=== PATIENT | male | born 1965 | race American Indian/Alaskan Native ===

== ENCOUNTER 2019-10-14 14:35 | Inpatient (IN) | payer MEDICAID ==
--- NOTE | 2019-10-14 15:04 | Emergency Department Report ---
ED General Adult HPI - General Chief complaint: Neuro Symptoms/Deficit Stated complaint: ERRATIC BEHAVIOR Time Seen by Provider: 10/14/19 15:02 Source: EMS Mode of arrival: Stretcher Limitations: No Limitations - History of Present Illness Initial comments: This is a 54-year-old man who was admitted to this facility in September 2019 with an acute metabolic encephalopathy thought secondary to overdose and associated with acute kidney injury requiring dialysis. He is known to have a history of Colstrip's disease. Patient was started on hemodialysis which was continued I believe after discharge. Limited history of present illness is available. I was told that he came from a half-way ([place]) with altered mental status. 09/2019: Hospitalization Reason for admission: Acute respiratory failure Condition: Stable Hospital course: 54-year-old after [place] male seen in the emergency room today with a change in mental status. He was said to have taken an overdose of unknown medications while in the waiting room. He was said to have gone into respiratory failure, hypotensive and subsequently intubated in the emergency room. Family members not available to give any history. Work-up in the emergency room reveals acute kidney injury, hyponatremia, rhabdomyolysis. He has not been able to produce any urine for urine drug screen. Patient was subsequently extubated, although hx complicated with ESRD. Awaiting Outpatient HD placement for discharge. Following extubation the patient was treated for suspected C. difficile colitis. With metronidazole his mental status did improve he did develop end-stage renal disease with progression of his renal condition was initially treated as acute kidney injury but with no resolution and was started on dialysis with further improvement of his mental status. During 1 of his clarity. The patient informs me that he has history of irritable bowel syndrome and that he is has diarrhea multiple times. We eventually were able to obtain an outpatient dialysis place his mental status improved and he is currently stable for discharge (1) Acute metabolic encephalopathy Current Visit: Yes Status: Acute Plan to address problem: Back to Baseline. Metabolic encephalopathy most likely secondary to a combination of drug overdose Colstrip's-like disease. Most likely back at baseline is what we are seeing now. (2) history of Colstrip's disease (3) Lactic acid acidosis/metabolic acidosis Current Visit: Yes Status: Acute Plan to address problem: Resolved secondary to rhabdo. (4) Overdose Current Visit: Yes Status: Acute Qualifiers: Encounter type: initial encounter Injury intent: undetermined intent Qualified Code(s): T50.904A - Poisoning by unspecified drugs, medicaments and biological substances, undetermined, initial encounter Plan to address problem: Unknown drug. (5) ESRD Current Visit: Yes Status: Acute Qualifiers: Renal failure chronicity: acute Acute renal failure type: unspecified Qualified Code(s): N17.9 - Acute kidney failure, unspecified Plan to address problem: Patient with acute kidney injury acute renal failure. Renal prognosis remains guarded. Patient has been started on hemodialysis. Permacath placed will continue dialysis outpatient. (6) Respiratory failure Current Visit: Yes Status: Acute Qualifiers: Chronicity: acute Respiratory failure complication: hypoxia Qualified Code(s): J96.01 - Acute respiratory failure with hypoxia Plan to address problem: Patient improving now extubated. Breathing without oxygen with adequate saturations. No further need only as needed oxygen. (7) Clostridium difficile colitis Current Visit: Yes Status: Acute Plan to address problem: Newly diagnosed C. difficile colitis will start patient on Flagyl twice daily. 8. Hypokalemia, replete K, monitor. 9. Sepsis, POA: Was on Cefepime. 10. Respiratory failure: S/p extubated. 11. Rhabdomyolysis, with elevated transaminitis: CK level improving. Monitor CK level. - Related Data Home Medications Medication Instructions Recorded Confirmed Last Taken Ferrous Gluconate [Ferrous 324 mg PO DAILY 09/23/19 09/23/19 Unknown Gluconate 324 MG] Mupirocin [Bactroban 2% OINT] 1 applic TP DAILY 09/23/19 09/23/19 Unknown tiZANidine [Zanaflex 4mg TAB] 4 mg PO Q12H PRN 09/23/19 09/23/19 Unknown Previous Rx's Medication Instructions Recorded Last Taken Type DULoxetine [Cymbalta] 60 mg PO QDAY #30 capsule 10/09/19 Unknown Rx Famotidine [Pepcid] 20 mg PO DAILY #30 tablet 10/09/19 Unknown Rx Furosemide [Lasix TAB] 40 mg PO QDAY #30 tablet 10/09/19 Unknown Rx busPIRone [Buspar] 20 mg PO BID #60 tab 10/09/19 Unknown Rx carvediloL [Coreg] 25 mg PO Q12HR #60 tablet 10/09/19 Unknown Rx hydrALAZINE [Apresoline TAB] 50 mg PO Q8HR #90 tablet 10/09/19 Unknown Rx lisinopriL [Zestril TAB] 20 mg PO QDAY #30 tablet 10/09/19 Unknown Rx Allergies Allergy/AdvReac Type Severity Reaction Status Date / Time No Known Allergies Allergy Unverified 09/23/19 04:32 ED Review of Systems ROS: Stated complaint: ERRATIC BEHAVIOR Other details as noted in HPI Comment: Unobtainable due to pts medical conditions ED Past Medical Hx - Past Medical History Hx Hypertension: Yes Hx Congestive Heart Failure: No Hx Diabetes: No Hx Asthma: No Hx COPD: No Additional medical history: Colstrip's like disease - Social History Smoking Status: Unknown if ever smoked Substance Use Type: Other (Previous overdose according to prior records) - Medications Home Medications: Home Medications Medication Instructions Recorded Confirmed Last Taken Type Ferrous Gluconate [Ferrous 324 mg PO DAILY 09/23/19 09/23/19 Unknown History Gluconate 324 MG] Mupirocin [Bactroban 2% OINT] 1 applic TP DAILY 09/23/19 09/23/19 Unknown History tiZANidine [Zanaflex 4mg TAB] 4 mg PO Q12H PRN 09/23/19 09/23/19 Unknown History DULoxetine [Cymbalta] 60 mg PO QDAY #30 capsule 10/09/19 Unknown Rx Famotidine [Pepcid] 20 mg PO DAILY #30 tablet 10/09/19 Unknown Rx Furosemide [Lasix TAB] 40 mg PO QDAY #30 tablet 10/09/19 Unknown Rx busPIRone [Buspar] 20 mg PO BID #60 tab 10/09/19 Unknown Rx carvediloL [Coreg] 25 mg PO Q12HR #60 tablet 10/09/19 Unknown Rx hydrALAZINE [Apresoline TAB] 50 mg PO Q8HR #90 tablet 10/09/19 Unknown Rx lisinopriL [Zestril TAB] 20 mg PO QDAY #30 tablet 10/09/19 Unknown Rx ED Physical Exam - General Limitations: Altered Mental Status, Other (Pale) General appearance: other (Somewhat writhing and agitated) - Head Head exam: Present: atraumatic - Eye Eye exam: Present: PERRL, EOMI. Absent: scleral icterus - ENT ENT exam: Present: mucous membranes dry, normal external ear exam - Neck Neck exam: Present: normal inspection. Absent: tenderness, meningismus - Respiratory Respiratory exam: Present: normal lung sounds bilaterally. Absent: respiratory distress - Cardiovascular Cardiovascular Exam: Present: regular rate, normal rhythm. Absent: systolic murmur, diastolic murmur, rubs, gallop - GI/Abdominal GI/Abdominal exam: Present: soft, normal bowel sounds. Absent: distended, ten derness, guarding, rebound, rigid - Extremities Exam Extremities exam: Present: normal inspection. Absent: calf tenderness - Back Exam Back exam: Present: other (Unable to view) - Neurological Exam Neurological exam: Present: altered - Psychiatric Psychiatric exam: Present: agitated, flat affect - Skin Skin exam: Present: warm ED Course Vital Signs 10/14/19 10/14/19 10/14/19 15:06 15:11 15:31 Temperature 99.0 F Pulse Rate 91 H 104 H 111 H Respiratory 16 16 17 Rate Blood Pressure Blood Pressure 143/86 [Left] O2 Sat by Pulse 99 98 88 Oximetry 10/14/19 10/14/19 16:31 17:01 Temperature Pulse Rate 117 H 114 H Respiratory 23 19 Rate Blood Pressure 157/85 125/79 Blood Pressure [Left] O2 Sat by Pulse 65 L 79 L Oximetry - Reevaluation(s) Reevaluation #1: Patient required Ativan for sedation. His hemoglobin has drifted to 7. I have ordered a unit of blood. I ordered a gram of vancomycin as his central line was in a state of extremely poor hygiene. This will be redressed. Blood cultures are pending. Lactic acid level was normal. 10/14/19 17:49 10/14/19 17:52 I do note that the patient's lymphocyte count has been quite low. The diffe rential is still pending. I have ordered an HIV test. I do not know the cause of the patient's encephalopathy. It remains unclear at this point. I am not certain if his previous overdose was really established on previous admission. Anyway his labs do not indicate a need for emergency dialysis. CT the head is negative. Patient will be admitted by Dr. Cadet for further care and evaluation. ED Medical Decision Making - Lab Data Result diagrams: 10/14/19 16:43 10/14/19 15:09 Laboratory Results - last 24 hr 10/14/19 10/14/19 10/14/19 15:09 15:09 15:09 WBC RBC Hgb Hct MCV MCH MCHC RDW Plt Count [place] % (Auto) PT 13.8 INR 1.05 APTT 30.5 Sodium Potassium Chloride Carbon Dioxide Anion Gap BUN Creatinine Estimated GFR BUN/Creatinine Ratio Glucose POC Glucose Lactic Acid 1.50 Calcium Phosphorus Magnesium Total Bilirubin Direct Bilirubin Indirect Bilirubin AST ALT Alkaline Phosphatase Ammonia Total Creatine Kinase 295 H CK-MB (CK-2) 10.8 H CK-MB (CK-2) Rel Index 3.6 NT-Pro-B Natriuret Pep 4375 H Total Protein Albumin Albumin/Globulin Ratio Salicylates Acetaminophen Blood Type Antibody Screen 10/14/19 10/14/19 10/14/19 15:09 15:09 15:09 WBC RBC Hgb Hct MCV MCH MCHC RDW Plt Count [place] % (Auto) PT INR APTT Sodium Potassium Chloride Carbon Dioxide Anion Gap BUN Creatinine Estimated GFR BUN/Creatinine Ratio Glucose POC Glucose Lactic Acid Calcium Phosphorus 5.80 H Magnesium 1.90 Total Bilirubin Direct Bilirubin Indirect Bilirubin AST ALT Alkaline Phosphatase Ammonia Total Creatine Kinase CK-MB (CK-2) CK-MB (CK-2) Rel Index NT-Pro-B Natriuret Pep Total Protein Albumin Albumin/Globulin Ratio Salicylates < 0.3 L Acetaminophen < 5.0 L Blood Type Antibody Screen 10/14/19 10/14/19 10/14/19 15:09 15:19 15:19 WBC RBC Hgb Hct MCV MCH MCHC RDW Plt Count [place] % (Auto) PT INR APTT Sodium 145 Potassium 3.7 Chloride 103.2 Carbon Dioxide 25 Anion Gap 21 BUN 40 H Creatinine 8.0 H Estimated GFR 9 BUN/Creatinine Ratio 5 Glucose 108 H POC Glucose Lactic Acid Calcium 8.3 L Phosphorus Magnesium Total Bilirubin 0.20 Direct Bilirubin < 0.2 Indirect Bilirubin 0.0 AST 24 ALT 34 Alkaline Phosphatase 51 Ammonia 17.0 L Total Creatine Kinase CK-MB (CK-2) CK-MB (CK-2) Rel Index NT-Pro-B Natriuret Pep Total Protein 5.7 L Albumin 3.3 L Albumin/Globulin Ratio 1.4 Salicylates Acetaminophen Blood Type B POSITIVE Antibody Screen Negative 10/14/19 10/14/19 15:37 16:43 WBC 5.5 RBC 2.35 L Hgb 7.0 L Hct 21.3 L MCV 91 MCH 30 MCHC 33 RDW 14.6 Plt Count 490 H [place] % (Auto) 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 No gross repolarization abnormality in available leads. Sinus tachycardia. Normal axis.) - Radiology Data Radiology results: report reviewed (Dialysis catheter right chest. No acute process), image reviewed CT of the head and chest x-ray no acute process Critical care attestation.: If time is entered above; I have spent that time in minutes in the direct care of this critically ill patient, excluding procedure time. ED Disposition Clinical Impression: Acute encephalopathy, End stage renal disease Anemia Qualifiers: Anemia type: unspecified type Qualified Code(s): D64.9 - Anemia, unspecified Disposition: OP ADMIT IP TO THIS HOSP Is pt being admited?: Yes Does the pt Need Aspirin: Yes Condition: Stable Time of Disposition: 17:55
[2019-10-14] MEDS ORDERED: LORazepam 2 MG/ML VIAL IV ONE ×2 (15:05→15:44)
[2019-10-14] MEDS ORDERED: LORazepam 2 MG/ML VIAL ONE (15:10)
[2019-10-14 15:48] LABS: INR 1.05 (0.87-1.13); Partial Thromboplastin Time 30.5 Sec. (24.2-36.6)
[2019-10-14 15:55] LABS: Creatine Kinase MB 10.8 ng/mL (0.0-4.0)
--- NOTE | 2019-10-14 16:16 | XRay Report ---
CHEST 1 VIEW, 10/14/2019 3:17 PM CLINICAL INFORMATION/INDICATION: Hypertension COMPARISON: Chest radiograph, 09/27/2019 at 2:50 AM FINDINGS: SUPPORT DEVICES: There has been interval placement of a dual lumen central catheter with distal tip p rojecting over the expected position of the distal SVC. HEART: The cardiac silhouette is normal in size. LUNGS/PLEURA: No focal airspace disease or significant pleural effusion is visualized. ADDITIONAL FINDINGS: No additional acute findings. IMPRESSION: 1. No evidence of acute cardiopulmonary process. Signer Name: Siobhan Rasheed MD Signed: 10/14/2019 4:12 PM Workstation Name: [id number]
[2019-10-14 16:50] LABS: Alanine Aminotransferase 34 units/L (7-56); Albumin 3.3 g/dL (3.9-5); BUN/Creatinine Ratio 5; Blood Urea Nitrogen 40 mg/dL (9-20); Calcium 8.3 mg/dL (8.4-10.2); Hemolysis Index 1
[2019-10-14 16:52] LABS: Bilirubin,Direct < 0.2 mg/dL (0-0.2)
[2019-10-14 17:15] LABS: Hematocrit 21.3 % (35.5-45.6); Mean Corpuscular HGB Conc 33 % (32-34); Mean Corpuscular Volume 91 fl (84-94); Platelet Count 490 K/mm3 (140-440); Red Blood Count 2.35 M/mm3 (3.65-5.03); Red Cell Distribution Width 14.6 % (13.2-15.2)
--- NOTE | 2019-10-14 17:22 | Cat Scan Report ---
NONENHANCED CT SCAN OF THE HEAD: INDICATION / CLINICAL INFORMATION: 54 years Male; MAIN: ams, pt suffers uncontrollable twitching and jerking best scan I could get. TECHNIQUE: Routine CT head without contrast. All CT scans at this location are performed using CT dos e reduction for ALARA by means of automated exposure control. COMPARISON: CT scan of the head from 09/23/2019 FINDINGS: BRAIN / INTRACRANIAL CONTENTS: These images were repeated twice due to motion related artifacts. No acute hemorrhage, mass effect, midline shift, hydrocephalus, or acute, large territorial infarct. No chronic infarct or focal atrophy. Normal brain volume and ventricular/sulcal size for age. No sig nificant white matter abnormality. CRANIOCERVICAL JUNCTION: No significant abnormality. ORBITS: No significant abnormality of visualized orbits. SINUSES / MASTOIDS: No significant abnormality of the visualized paranasal sinuses or mastoid air rambo ls. ADDITIONAL FINDINGS: None. IMPRESSION: Limited CT scan due to motion related artifacts No focal acute parenchymal lesion in the brain CT findings remain unchanged. Signer Name: Darren Willis MD Signed: 10/14/2019 5:18 PM Workstation Name: [id number]
[2019-10-14] MEDS ORDERED: SODIUM CHLORIDE 0.9% 500 ML 500 ML IV ONE (17:47)
[2019-10-14] MEDS ORDERED: VANCOMYCIN/NS 1 GM/250 ML 1 GM/250 ML BAG IV ONE (17:48)
[2019-10-14] MEDS ORDERED: ASPIRIN 300 MG RECT SUPP PR ONE (17:55)
[2019-10-14 17:58] LABS: RBC Morphology Normal; Total Cells Counted 100
[2019-10-14] MEDS ORDERED: ZIPRASIDONE MESYLATE 20 MG VIAL IM ONE (20:30)
[2019-10-14] MEDS ORDERED: WATER FOR INJ Sterile (PF) 10 ML ONE (20:35)
[2019-10-14] MEDS ORDERED: SODIUM CHLORIDE 0.9% 500 ML 500 ML ONE (22:58)
[2019-10-15] MEDS ORDERED: tiZANidine TAB 4 MG TAB PO PRN (00:14)
[2019-10-15] MEDS ORDERED: ONDANSETRON 4 MG/2 ML INJ IV PRN (00:15)
[2019-10-15] MEDS ORDERED: ACETAMINOPHEN 325 MG TAB PO PRN (00:15)
[2019-10-15] MEDS ORDERED: HYDROmorphone 1 MG/1 ML INJ IV PRN (00:15)
[2019-10-15] MEDS ORDERED: oxyCODONE /ACETAMINOPHEN 5-325MG TAB PO PRN (00:15)
[2019-10-15] MEDS: busPIRone 10 MG TAB PO SCH ×3 (01:01→22:32)
[2019-10-15] MEDS ORDERED: hydrALAZINE 25 MG TAB ONE (06:57)
[2019-10-15] MEDS ORDERED: busPIRone 5 MG TAB ONE (06:57)
[2019-10-15] MEDS ORDERED: carvediloL 25 MG TAB ONE ×2 (06:58→10:37)
--- NOTE | 2019-10-15 06:58 | Event Note ---
Date: 10/14/19 See H/p in rep[orts Acute Metabolic encephalopathy ESRD
[2019-10-15] MEDS: hydrALAZINE 25 MG TAB PO SCH ×3 (07:00→22:33)
[2019-10-15] MEDS: carvediloL 25 MG TAB PO SCH ×3 (07:00→22:32)
[2019-10-15 07:51] LABS: Bilirubin,Urine NEG (Negative); Blood,Urine MOD (Negative); Color,Urine Yellow (Yellow); Mucus,Urine FEW /HPF; Urobilinogen,Urine < 2.0 mg/dL (<2.0)
[2019-10-15 07:58] LABS: Amphetamine Screen,Urine PRESUMPTIVE NEGATIVE; Benzodiazepines Screen,Urine PRESUMPTIVE NEGATIVE; Cannabinoid Screen,Urine PRESUMPTIVE NEGATIVE; Cocaine Screen,Urine PRESUMPTIVE NEGATIVE; Methadone Screen,Urine PRESUMPTIVE NEGATIVE; Opiate Screen,Urine PRESUMPTIVE NEGATIVE
--- NOTE | 2019-10-15 09:51 | History and Physical Report ---
CHIEF COMPLAINT: Severe confusion and erratic behavior. 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 The patient [place] a [place]. Altered mental status for 1 day. No fever. No exposure to Thakkar virus patients. Recent hospitalization in September 2019 was reviewed, which showed acute metabolic encephalopathy, Christine's disease and lactic acidosis and questionable overdose and end-stage renal disease, also C. diff colitis. PAST MEDICAL HISTORY: Significant for hypertension, Christine's disease and end-stage renal disease. SOCIAL HISTORY: Lives at a detention. PAST SURGICAL HISTORY: Unknown. FAMILY HISTORY: Hypertension. REVIEW OF SYSTEMS: Significant for acute confusion. No fever and no precipitating causes. PHYSICAL EXAMINATION: GENERAL: Middle-aged male, alert, confused. VITAL SIGNS: Blood pressure is 158/90, temperature is 98.2, pulse is 104, respirations are 18. HEENT: Unremarkable. Pupils equal and reactive. NECK: Supple, no lymphadenopathy, no thyromegaly. LUNGS: Clear to auscultation and percussion. Good air entry. CARDIOVASCULAR: S1, S2 heard. No gallop, no murmur, no rub. Apical impulse in left fifth intercostal space and midclavicular line. ABDOMEN: Soft and benign. No hepatosplenomegaly, no guarding, no rigidity. Hernial orifices are normal. EXTREMITIES: Show good pedal pulses. No pedal edema. CENTRAL NERVOUS SYSTEM: Alert, but lethargic. LABORATORY DATA: Significant for white count of 5500, H and H is 7.2 and 21.3, platelet count of 490,000. BUN and creatinine is ____ and 8.0. Glucose is 108. Calcium is 8.3, slightly low, phosphorus 5.8. Ammonia level is 17, which is below normal. Albumin is 3.3. BNP is 4375. IMAGING STUDIES: Chest x-ray shows no evidence of acute cardiopulmonary process. Head CT is normal. No acute findings. ASSESSMENT AND PLAN: 1. Acute metabolic encephalopathy, probably secondary to uremia. Needs dialysis and increased ultrafiltration. 2. End-stage renal disease, on hemodialysis as per Nephrology. 3. Symptomatic anemia. Transfuse 1 unit of blood. 4. Hypertension. Continue Coreg and hydralazine and lisinopril. 5. Congestive heart failure and volume overload. Continue with Lasix. Also, increase ultrafiltration. 6. Gastroesophageal reflux disease. Continue famotidine. 7. Deep venous thrombosis prophylaxis. Heparin 5000 q. 12. In summary, the patient has acute metabolic encephalopathy secondary to uremia. Also, hypertension and Miami's disease. JOB# [id number] VSM/NTS MTDD
[2019-10-15] MEDS ORDERED: FAMOTIDINE 20 MG TAB PO SCH (10:00)
[2019-10-15] MEDS ORDERED: DULoxetine 30 MG CAP ONE (10:37)
[2019-10-15] MEDS ORDERED: FUROSEMIDE 20 MG TAB ONE (10:39)
[2019-10-15] MEDS ORDERED: HEPARIN 5,000 UNIT/1 ML VIAL ONE (10:40)
[2019-10-15] MEDS ORDERED: FAMOTIDINE 20 MG TAB ONE (10:40)
[2019-10-15] MEDS: DULoxetine 30 MG CAP PO SCH (10:43)
[2019-10-15] MEDS: FAMOTIDINE 10 MG TAB PO SCH ×2 (10:44→22:32)
[2019-10-15] MEDS: HEPARIN 5,000 UNIT/1 ML VIAL SUB-Q SCH ×2 (10:44→22:33)
[2019-10-15 10:46] LABS: Calcium 8.7 mg/dL (8.4-10.2)
[2019-10-15] MEDS: FUROSEMIDE 40 MG TAB PO SCH (10:46)
--- NOTE | 2019-10-15 11:29 | Consultation ---
History of Present Illness - Reason for Consult Consult date: 10/15/19 acute renal failure, chronic renal failure - History of Present Illness The patient is a 54 YO male who is known to [facility] with history significant for HTN, KIA on CKD / ESRD on maintenance hemodialysis, Anemia and ?Mental disorder who presented to [facility] with a change in mental status. He was treated at this facility between 09/22 and 10/08 for drug OD, metabolic encephalopathy, acute respiratory failure, Rhabdomyolysis, elevated LFTs and KIA. He was started on hemodialysis during the prior admission and he went ot outpatient HD on 10/11. Patient is a very poor historian and and family members not available to give any history. Patient was admitted for evaluation of AMS. Nephrology was consulted to manage ESRD. Past History Past Medical History: anemia, dialysis, ESRD, hyperlipidemia Medications and Allergies Allergies Allergy/AdvReac Type Severity Reaction Status Date / Time No Known Allergies Allergy Unverified 09/23/19 04:32 Home Medications Medication Instructions Recorded Confirmed Last Taken Type Ferrous Gluconate [Ferrous 324 mg PO DAILY 09/23/19 10/15/19 Unknown History Gluconate 324 MG] Mupirocin [Bactroban 2% OINT] 1 applic TP DAILY 09/23/19 10/15/19 Unknown History tiZANidine [Zanaflex 4mg TAB] 4 mg PO Q12H PRN 09/23/19 10/15/19 Unknown History DULoxetine [Cymbalta] 60 mg PO QDAY #30 capsule 10/09/19 10/15/19 Unknown Rx Famotidine [Pepcid] 20 mg PO DAILY #30 tablet 10/09/19 10/15/19 Unknown Rx Furosemide [Lasix TAB] 40 mg PO QDAY #30 tablet 10/09/19 10/15/19 Unknown Rx busPIRone [Buspar] 20 mg PO BID #60 tab 10/09/19 10/15/19 Unknown Rx carvediloL [Coreg] 25 mg PO Q12HR #60 tablet 10/09/19 10/15/19 Unknown Rx hydrALAZINE [Apresoline TAB] 50 mg PO Q8HR #90 tablet 10/09/19 10/15/19 Unknown Rx lisinopriL [Zestril TAB] 20 mg PO QDAY #30 tablet 10/09/19 10/15/19 Unknown Rx Active Meds: Active Medications Acetaminophen (Tylenol) 650 mg PO Q4H PRN PRN Reason: Pain MILD(1-3)/Fever >100.5/VINSON Buspirone HCl (Buspar) 20 mg PO BID [facility] Last Admin: 10/15/19 10:45 Dose: 20 mg Documented by: Carvedilol (Coreg) 25 mg PO Q12HR [facility] Last Admin: 10/15/19 10:45 Dose: 25 mg Documented by: Duloxetine HCl (Cymbalta) 60 mg PO QDAY [facility] Last Admin: 10/15/19 10:43 Dose: 60 mg Documented by: Famotidine (Pepcid) 10 mg PO BID [facility] Last Admin: 10/15/19 10:44 Dose: 10 mg Documented by: Ferrous Gluconate (Fergon) 324 mg PO DAILY [facility] Furosemide (Lasix) 40 mg PO QDAY [facility] Last Admin: 10/15/19 10:46 Dose: 40 mg Documented by: Heparin Sodium (Porcine) (Heparin) 5,000 unit SUB-Q Q12HR [facility] Last Admin: 10/15/19 10:44 Dose: 5,000 unit Documented by: Hydralazine HCl (Apresoline) 50 mg PO Q8HR [facility] Last Admin: 10/15/19 07:00 Dose: 50 mg Documented by: Hydromorphone HCl (Dilaudid) 0.5 mg IV Q3H PRN PRN Reason: Pain , Severe (7-10) Lisinopril (Zestril) 20 mg PO QDAY [facility] Mupirocin (Bactroban 2%) 1 applic TP DAILY [facility] Ondansetron HCl (Zofran) 4 mg IV Q8H PRN PRN Reason: Nausea And Vomiting Oxycodone/Acetaminophen (Percocet 5/325) 1 tab PO Q6H PRN PRN Reason: Pain, Moderate (4-6) Sodium Chloride (Sodium Chloride Flush Syringe 10 Ml) 10 ml IV BID [facility] Sodium Chloride (Sodium Chloride Flush Syringe 10 Ml) 10 ml IV PRN PRN PRN Reason: LINE FLUSH Tizanidine HCl (Zanaflex) 4 mg PO Q12H PRN PRN Reason: Spasms Review of Systems ROS unobtainable: due to mental status Exam - Vital Signs Vital signs: Vital Signs Pulse Resp Pulse Ox 91 H 16 99 10/14/19 15:06 10/14/19 15:06 10/14/19 15:06 - General Appearance General appearance: well-developed, well-nourished, appears stated age, other ( no distress, R IJ tunnel catheter) EENT: ATNC, PERRL, mucous membranes moist, hearing intact, vision intact Neck: Present: neck supple, trachea midline Respiratory: Clear to Ascultation Heart: regular, S1S2, no murmurs Gastrointestinal: Present: normoactive bowel sounds. Absent: tenderness, distended Integumentary: no rash, warm and dry Neurologic: no focal deficit, no asterixis, confused, disoriented Musculoskeletal: Present: other (trace extremity edema noted) Results - Lab Results 10/14/19 16:43 10/15/19 09:37 Most recent lab results Calcium 8.7 mg/dL (8.4-10.2) 10/15/19 09:37 Phosphorus 5.80 mg/dL (2.5-4.5) H 10/14/19 15:09 Magnesium 1.90 mg/dL (1.7-2.3) 10/14/19 15:09 Assessment and Plan 1. ESRD: Vasomotor KIA superimposed on CKD in the setting of hypotension, Rhabdomyolysis +/- volume depletion. Now progressed to ESRD. Monitor renal function. Renal prognosis is guarded to poor. Avoid nephrotoxic agents. Meds dosage based on GFR. Patient was started on hemodialysis 09/28 due to worsening renal function / significant decline in renal function. Last outpatient HD 10/11. Hemodialysis: 10/15(planned). He is scheduled to have kidney biopsy done on 10/15 as outpatient. He received a dose of Aspirin yesterday. Will have to wait atleast 5 days. 2. FEN: Monitor lytes. 3. Hypertension: Continue home meds. Monitor BP. 4. Encephalopathy, POA: CT negative for acute process. 5. Anemia, POA: Epogen with HD.
[2019-10-15] MEDS: MUPIROCIN 2% OINT 22 GM TP SCH (11:57)
[2019-10-15] MEDS: LISINOPRIL 20 MG TAB PO SCH (11:59)
[2019-10-15] MEDS: FERROUS GLUCONATE 324 MG TAB PO SCH (12:00)
[2019-10-15] MEDS ORDERED: LISINOPRIL 20 MG TAB ONE (12:00)
[2019-10-15] MEDS ORDERED: EPOETIN ALFA 20,000 UNIT/1 ML INJ SUB-Q PRN (22:02)
[2019-10-15] MEDS ORDERED: SODIUM CHLORIDE 0.9% 100 ML IV PRN (22:02)
[2019-10-15] MEDS ORDERED: HEPARIN 10,000 UNITS/10 ML VIAL IV PRN (22:02)
--- NOTE | 2019-10-16 05:15 | Progress Note ---
Assessment and Plan - Patient Problems (1) Acute encephalopathy Current Visit: Yes Status: Acute Plan to address problem: Sec to uremia. 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 Wants to go home after HD.Not done yet. PUI?: No Objective - Constitutional Vitals: Vital Signs - 12hr 10/15/19 10/15/19 10/15/19 19:45 20:32 20:40 Temperature 100.2 F H 100.2 F H Pulse Rate 92 H 92 H Respiratory 18 18 Rate Blood Pressure 167/99 Blood Pressure 167/99 [Left] O2 Sat by Pulse 97 Oximetry 10/15/19 10/16/19 22:32 00:00 Temperature 97.9 F Pulse Rate 90 Respiratory 22 18 Rate Blood Pressure 152/88 Blood Pressure [Left] O2 Sat by Pulse 95 Oximetry General appearance: Present: no acute distress, well-nourished - EENT Eyes: PERRL, EOM intact ENT: hearing intact, clear oral mucosa Ears: bilateral: normal - Neck Neck: supple, normal ROM - Respiratory Respiratory effort: normal Respiratory: bilateral: CTA - Breasts Breasts: normal - Cardiovascular Rhythm: regular Heart Sounds: Present: S1 & S2. Absent: gallop, rub Extremities: pulses intact, No edema, normal color, Full ROM - Gastrointestinal General gastrointestinal: Present: soft, non-tender, non-distended, normal bowel sounds - Genitourinary Male genitourinary: normal - Integumentary Integumentary: clear, warm, dry - Musculoskeletal Musculoskeletal: 1, strength equal bilaterally - Neurologic Neurologic: moves all extremities - Psychiatric Psychiatric: memory intact, appropriate mood/affect, intact judgment & insight - Labs CBC & Chem 7: 10/14/19 16:43 10/15/19 09:37 Labs: Abnormal lab results 10/14/19 10/15/19 Range/Units Unknown 09:37 BUN 44 H (9-20) mg/dL Creatinine 8.2 H (0.8-1.5) mg/dL Glucose 113 H (75-100) mg/dL Urine WBC (Auto) 13.0 H (0.0-6.0) /HPF
--- NOTE | 2019-10-16 05:23 | Event Note ---
Date: 10/15/19 Discharge in AM after HD
[2019-10-16] MEDS: hydrALAZINE 25 MG TAB PO SCH ×2 (06:25→14:13)
[2019-10-16] MEDS ORDERED: SODIUM CHLORIDE*PRIMING MACHINE ONLY FOR DIALYSIS MC ONE (10:36)
[2019-10-16 12:07] VITALS: BP 146/99
[2019-10-16] MEDS: FAMOTIDINE 10 MG TAB PO SCH (12:30)
[2019-10-16] MEDS: carvediloL 25 MG TAB PO SCH (12:30)
[2019-10-16] MEDS: FERROUS GLUCONATE 324 MG TAB PO SCH (12:31)
[2019-10-16] MEDS: busPIRone 10 MG TAB PO SCH (12:31)
[2019-10-16] MEDS: HEPARIN 5,000 UNIT/1 ML VIAL SUB-Q SCH (12:31)
[2019-10-16] MEDS: DULoxetine 30 MG CAP PO SCH (12:31)
[2019-10-16] MEDS: FUROSEMIDE 40 MG TAB PO SCH (12:31)
--- NOTE | 2019-10-16 12:33 | Progress Note ---
Assessment and Plan 1. ESRD: Vasomotor KIA superimposed on CKD in the setting of hypotension, Rhabdomyolysis +/- volume depletion. Now progressed to ESRD. Monitor renal function. Renal prognosis is guarded to poor. Avoid nephrotoxic agents. Meds dosage based on GFR. During the prior admission patient was started on hemodialysis 09/28 due to worsening renal function / significant decline in renal function. Last outpatient HD 10/11. Hemodialysis: 10/15. He was scheduled to have kidney biopsy done today as outpatient. He received a dose of Aspirin 10/13. Will have to wait atleast 5 days. Patient was informed about the above and he voiced understanding. 2. FEN: Monitor lytes. 3. Fever: No fever today. 4. Hypertension: Continue home meds. Monitor BP. 5. Encephalopathy, POA: CT negative for acute process. 6. Anemia, POA: Epogen with HD. Compliance encouraged. - Subjective: Patient was seen and examined at the bedside. Doing ok. - General Appearance General appearance: well-developed, well-nourished, appears stated age, no distress HEENT: ATNC, PERRL, mucous membranes moist, hearing intact, vision intact Neck: neck supple, trachea midline Respiratory: Clear to Ascultation Heart: regular, S1S2, no murmurs Gastrointestinal: soft, normoactive bowel sounds, not tenderness, not distended Integumentary: no rash, warm and dry Neurologic: no focal deficit, no asterixis, oriented Ext: trace extremity edema noted Hemodialysis access: R IJ tunnel catheter Subjective Date of service: 10/16/19 Principal diagnosis: Volume overload PUI?: No Objective - Vital Signs Vital signs: Vital Signs - 12hr 10/16/19 10/16/19 10/16/19 04:59 07:24 08:40 Temperature 98.7 F 98.9 F 98.3 F Pulse Rate 92 H 89 87 Respiratory 18 18 126 H Rate Blood Pressure 153/95 152/100 172/105 O2 Sat by Pulse 93 93 Oximetry 10/16/19 10/16/19 10/16/19 08:50 09:15 09:30 Temperature Pulse Rate 87 84 77 Respiratory Rate Blood Pressure 172/105 169/100 173/99 O2 Sat by Pulse Oximetry 10/16/19 10/16/19 10/16/19 09:45 10:00 10:15 Temperature Pulse Rate 73 85 73 Respiratory Rate Blood Pressure 161/101 157/94 157/102 O2 Sat by Pulse Oximetry 10/16/19 10/16/19 10/16/19 10:31 10:45 11:00 Temperature Pulse Rate 67 66 81 Respiratory Rate Blood Pressure 147/88 167/93 175/94 O2 Sat by Pulse Oximetry 10/16/19 10/16/19 10/16/19 11:15 11:30 11:45 Temperature Pulse Rate 68 80 73 Respiratory Rate Blood Pressure 136/98 140/96 146/84 O2 Sat by Pulse Oximetry 10/16/19 10/16/19 11:51 12:03 Temperature 98.3 F Pulse Rate 77 88 Respiratory 16 Rate Blood Pressure 152/88 146/99 O2 Sat by Pulse Oximetry - Lab 10/14/19 16:43 10/15/19 09:37 Most recent lab results Calcium 8.7 mg/dL (8.4-10.2) 10/15/19 09:37 Phosphorus 5.80 mg/dL (2.5-4.5) H 10/14/19 15:09 Magnesium 1.90 mg/dL (1.7-2.3) 10/14/19 15:09 Medications & Allergies - Medications Allergies/Adverse Reactions: Allergies No Known Allergies Allergy (Unverified 09/23/19 04:32) Home Medications: Home Medications Medication Instructions Recorded Confirmed Last Taken Type Ferrous Gluconate [Ferrous 324 mg PO DAILY 09/23/19 10/15/19 Unknown History Gluconate 324 MG] Mupirocin [Bactroban 2% OINT] 1 applic TP DAILY 09/23/19 10/15/19 Unknown History tiZANidine [Zanaflex 4mg TAB] 4 mg PO Q12H PRN 09/23/19 10/15/19 Unknown History DULoxetine [Cymbalta] 60 mg PO QDAY #30 capsule 10/09/19 10/15/19 Unknown Rx Famotidine [Pepcid] 20 mg PO DAILY #30 tablet 10/09/19 10/15/19 Unknown Rx Furosemide [Lasix TAB] 40 mg PO QDAY #30 tablet 10/09/19 10/15/19 Unknown Rx busPIRone [Buspar] 20 mg PO BID #60 tab 10/09/19 10/15/19 Unknown Rx carvediloL [Coreg] 25 mg PO Q12HR #60 tablet 10/09/19 10/15/19 Unknown Rx hydrALAZINE [Apresoline TAB] 50 mg PO Q8HR #90 tablet 10/09/19 10/15/19 Unknown Rx lisinopriL [Zestril TAB] 20 mg PO QDAY #30 tablet 10/09/19 10/15/19 Unknown Rx Active Medications: Generic Name Dose Route Start Last Admin Trade Name Freq PRN Reason Stop Dose Admin Acetaminophen 650 mg 10/15/19 00:15 10/15/19 22:32 Tylenol PO 650 mg Q4H PRN Administration Pain MILD(1-3)/Fever >100.5/VINSON Buspirone HCl 20 mg 10/15/19 01:00 10/15/19 22:32 Buspar PO 20 mg BID TIFFANIE Administration Carvedilol 25 mg 10/15/19 01:00 10/15/19 22:32 Coreg PO 25 mg Q12HR TIFFANIE Administration Duloxetine HCl 60 mg 10/15/19 10:00 10/15/19 10:43 Cymbalta PO 60 mg QDAY TIFFANIE Administration Epoetin Glenn 20,000 unit 10/15/19 22:02 Procrit SUB-Q SHAGUFTA PRN hemodialysis Famotidine 10 mg 10/15/19 10:00 10/15/19 22:32 Pepcid PO 10 mg BID TIFFANIE Administration Ferrous Gluconate 324 mg 10/15/19 10:00 10/15/19 12:00 Fergon PO Not Given DAILY TIFFANIE Furosemide 40 mg 10/15/19 10:00 10/15/19 10:46 Lasix PO 40 mg QDAY TIFFANIE Administration Heparin Sodium (Porcine) 5,000 unit 10/15/19 10:00 10/15/19 22:33 Heparin SUB-Q 5,000 unit Q12HR TIFFANIE Administration Heparin Sodium (Porcine) 2,000 unit 10/15/19 22:02 Heparin 10,000 Units/10 Ml IV SHAGUFTA PRN hemodialysis Hydralazine HCl 50 mg 10/15/19 06:00 10/16/19 06:25 Apresoline PO 50 mg Q8HR TIFFANIE Administration Hydromorphone HCl 0.5 mg 10/15/19 00:15 Dilaudid IV Q3H PRN Pain , Severe (7-10) Sodium Chloride 100 mls @ 999 mls/hr 10/15/19 22:02 Nacl 0.9% IV SHAGUFTA PRN Hypotension Lisinopril 20 mg 10/15/19 10:00 10/15/19 11:59 Zestril PO 20 mg QDAY TIFFANIE Administration Mupirocin 1 applic 10/15/19 10:00 10/15/19 11:57 Bactroban 2% TP Not Given DAILY TIFFANIE Ondansetron HCl 4 mg 10/15/19 00:15 Zofran IV Q8H PRN Nausea And Vomiting Oxycodone/Acetaminophen 1 tab 10/15/19 00:15 Percocet 5/325 PO Q6H PRN Pain, Moderate (4-6) Sodium Chloride 10 ml 10/15/19 10:00 10/15/19 22:33 Sodium Chloride Flush Syringe 10 Ml IV 10 ml BID TIFFANIE Administration Sodium Chloride 10 ml 10/15/19 00:15 Sodium Chloride Flush Syringe 10 Ml IV PRN PRN LINE FLUSH Tizanidine HCl 4 mg 10/15/19 00:14 Zanaflex PO Q12H PRN Spasms
[2019-10-16] MEDS: LISINOPRIL 20 MG TAB PO SCH (12:34)
[2019-10-16] MEDS: MUPIROCIN 2% OINT 22 GM TP SCH (12:34)
--- NOTE | 2019-10-16 12:43 | Discharge Summary ---
Providers - Providers Date of Admission: 10/14/19 17:55 Attending physician: LEONARD SANTIAGO MD 10/14/19 17:57 Consult to Physician [CONS] Stat Comment: Consulting Provider: BOB WHITE Physician Instructions: Reason For Exam: End-stage renal, rhabdo Primary care physician: PRESSURE DISPATCHER Hospitalization Condition: Stable Disposition: DC/[place]-03 [facility] Time spent for discharge: 35 mins Core Measure Documentation - Palliative Care Palliative Care/ Comfort Measures: Not Applicable - Core Measures Any of the following diagnoses?: none Exam - Constitutional Vitals: Temp Pulse Resp BP Pulse Ox 98.3 F 88 16 146/99 93 10/16/19 12:03 10/16/19 12:34 10/16/19 12:03 10/16/19 12:34 10/16/19 07:24 Plan Activity: advance as tolerated, fall precautions Diet: low fat, renal Special Instructions: record daily BP diary Follow up with: JASMYNE MAYA MD [Primary Care Provider] - 7 Days SHAHRIAR ELI MD [Staff Physician] - 7 Days BOB WHITE MD [Staff Physician] - 7 Days LEONIDES ROGERS MD [Staff Physician] - 7 Days
== END 2019-10-16 17:57 | disposition home or self-care (01) | DRG 682 ==
LOC: ED 14:35 → OBSVTOIN 17:55 → IMCU 17:55 → 4A 10-15 09:22
PROVIDERS: ADMIT Internal Medicine; ATTEND Internal Medicine
PROC: 30233N1 Transfusion of Nonautologous Red Blood Cells into Peripheral Vein, Percutaneous Approach (ICD-10-PCS; principal; 2019-10-15)
PROC: 5A1D70Z Performance of Urinary Filtration, Intermittent, Less than 6 Hours Per Day (ICD-10-PCS; 2019-10-16)
DX: N17.0 Acute kidney failure with tubular necrosis (principal); G93.41 Metabolic encephalopathy; N18.6 End stage renal disease; I12.0 Hypertensive chronic kidney disease with stage 5 chronic kidney disease or end stage renal disease; D64.9 Anemia, unspecified; I95.9 Hypotension, unspecified; E87.70 Fluid overload, unspecified; E78.5 Hyperlipidemia, unspecified; M62.82 Rhabdomyolysis; G10 Huntington's disease; Z99.2 Dependence on renal dialysis; Z91.15 Patient's noncompliance with renal dialysis
CPT/HCPCS: 36415; 70450; 71045; 80048; 80076; 80307; 80320; 81001; 82140; 82550; 82553; 82962; 83036; 83735; 83880; 84100; 85007; 85025; 85610; 85730; 86850; 86900; 86901; 86920; 87040; 87086; 87535; 93005; 93010; G0378; G0480; J1644; J2060; J3370; J3486; J7030; J7040; P9016

== ENCOUNTER 2020-02-22 01:42 | Emergency (ER) | payer MEDICAID ==
[2020-02-22 03:49] VITALS: BP 109/64
[2020-02-22] MEDS ORDERED: ACETAMINOPHEN 500 MG TAB PO ONE (04:19)
[2020-02-22 04:59] LABS: BUN/Creatinine Ratio 23; Blood Urea Nitrogen 21 mg/dL (9-20); Hemolysis Index 25
--- NOTE | 2020-02-22 05:09 | Emergency Department Report ---
ED General Adult HPI - General Chief complaint: Pain General Stated complaint: HIP PAIN/BODYACHES Time Seen by Provider: 02/22/20 03:49 Source: patient Mode of arrival: Ambulatory Limitations: No Limitations - History of Present Illness Initial comments: This is a 55-year-old male nontoxic, well nourished in appearance, no acute signs of distress presents to the ED with c/o of bilateral acute on chronic feet pain and hand pain times several years. Patient stated has history of osteoarthritis. Patient denies any trauma or injuries. Patient denies any fever, chills, nausea, vomiting, chest pain, shortness of breath, headache or stiff neck. Denies any joint swelling. -: year(s) Radiation: non-radiation Severity scale (0 -10): 3 Quality: aching Consistency: intermittent Improves with: none Worsens with: none Associated Symptoms: denies other symptoms. denies: confusion, chest pain, cough, diaphoresis, fever/chills, headaches, loss of appetite, malaise, nausea/vomiting, rash, seizure, shortness of breath, syncope, weakness - Related Data Home Medications Medication Instructions Recorded Confirmed Last Taken Ferrous Gluconate [Ferrous 324 mg PO DAILY 09/23/19 10/15/19 Unknown Gluconate 324 MG] Mupirocin [Bactroban 2% OINT] 1 applic TP DAILY 09/23/19 10/15/19 Unknown tiZANidine [Zanaflex 4mg TAB] 4 mg PO Q12H PRN 09/23/19 10/15/19 Unknown Previous Rx's Medication Instructions Recorded Last Taken Type DULoxetine [Cymbalta] 60 mg PO QDAY #30 capsule 10/09/19 Unknown Rx Famotidine [Pepcid] 20 mg PO DAILY #30 tablet 10/09/19 Unknown Rx busPIRone [Buspar] 20 mg PO BID #60 tab 10/09/19 Unknown Rx carvediloL [Coreg] 25 mg PO Q12HR #60 tablet 10/09/19 Unknown Rx Naproxen 500 mg PO Q12H PRN #30 tablet 02/08/20 Unknown Rx predniSONE [Deltasone] 40 mg PO QDAY #10 tab 02/08/20 Unknown Rx Acetaminophen [Acetaminophen 8 650 mg PO Q8H PRN #20 tablet.er 02/22/20 Unknown Rx Hour] Allergies Allergy/AdvReac Type Severity Reaction Status Date / Time No Known Allergies Allergy Unverified 09/23/19 04:32 ED Review of Systems ROS: Stated complaint: HIP PAIN/BODYACHES Other details as noted in HPI Constitutional: denies: chills, fever Eyes: denies: eye pain, eye discharge, vision change ENT: denies: ear pain, throat pain Respiratory: denies: cough, shortness of breath, wheezing Cardiovascular: denies: chest pain, palpitations Endocrine: no symptoms reported Gastrointestinal: denies: abdominal pain, nausea, diarrhea Genitourinary: denies: urgency, dysuria Musculoskeletal: arthralgia. denies: back pain, joint swelling Skin: denies: rash, lesions Neurological: denies: headache, weakness, paresthesias Psychiatric: denies: anxiety, depression Hematological/Lymphatic: denies: easy bleeding, easy bruising ED Past Medical Hx - Past Medical History Previous Medical History?: Yes Hx Hypertension: Yes Hx Congestive Heart Failure: No Hx Diabetes: No Hx GERD: Yes Hx Liver Disease: Yes (HX ELEVATED LIVER ENZYMES) Hx Renal Disease: Yes (Dialysis Tue, Thur, Sat; Port on left chest) Hx Psychiatric Treatment: Yes (Bipolar Disorder, Schizophrenia) Hx Asthma: No Hx COPD: No Additional medical history: Upshur's like disease - Social History Smoking Status: Never Smoker Substance Use Type: None - Medications Home Medications: Home Medications Medication Instructions Recorded Confirmed Last Taken Type Ferrous Gluconate [Ferrous 324 mg PO DAILY 09/23/19 10/15/19 Unknown History Gluconate 324 MG] Mupirocin [Bactroban 2% OINT] 1 applic TP DAILY 09/23/19 10/15/19 Unknown History tiZANidine [Zanaflex 4mg TAB] 4 mg PO Q12H PRN 09/23/19 10/15/19 Unknown History DULoxetine [Cymbalta] 60 mg PO QDAY #30 capsule 10/09/19 10/15/19 Unknown Rx Famotidine [Pepcid] 20 mg PO DAILY #30 tablet 10/09/19 10/15/19 Unknown Rx busPIRone [Buspar] 20 mg PO BID #60 tab 10/09/19 10/15/19 Unknown Rx carvediloL [Coreg] 25 mg PO Q12HR #60 tablet 10/09/19 10/15/19 Unknown Rx Naproxen 500 mg PO Q12H PRN #30 tablet 02/08/20 Unknown Rx predniSONE [Deltasone] 40 mg PO QDAY #10 tab 02/08/20 Unknown Rx Acetaminophen [Acetaminophen 8 650 mg PO Q8H PRN #20 tablet.er 02/22/20 Unknown Rx Hour] ED Physical Exam - General Limitations: No Limitations General appearance: alert, in no apparent distress - Head Head exam: Present: atraumatic, normocephalic - Eye Eye exam: Present: normal appearance - Neck Neck exam: Present: normal inspection, full ROM. Absent: tenderness, meningismus, lymphadenopathy - Extremities Exam Extremities exam: Present: normal inspection, full ROM, normal capillary refill. Absent: tenderness, joint swelling, calf tenderness - Back Exam Back exam: Present: normal inspection, full ROM. Absent: tenderness, CVA tenderness (R), CVA tenderness (L), muscle spasm, paraspinal tenderness, vertebral tenderness, rash noted - Neurological Exam Neurological exam: Present: alert, oriented X3, normal gait - Psychiatric Psychiatric exam: Present: normal affect, normal mood - Skin Skin exam: Present: warm, dry, intact, normal color. Absent: rash ED Course Vital Signs 02/22/20 01:59 Temperature 98.4 F Pulse Rate 63 Respiratory 18 Rate Blood Pressure 109/64 O2 Sat by Pulse 97 Oximetry - Reevaluation(s) Reevaluation #1: 02/22/20 05:11 Patient is speaking in full sentences with no signs of distress noted. ED Medical Decision Making - Lab Data Result diagrams: 02/22/20 04:08 - Medical Decision Making 55-year-old male that presents with arthralgia. Patient is stable and was examined by me. Vital signs are stable. Labs are unremarkable. Patient was instructed to follow-up with a primary care doctor in 3-5 days or if symptoms worsen and continue return to emergency room as soon as possible. At time of discharge, the patient does not seem toxic or ill in appearance. No acute signs of distress noted. Patient agrees to discharge treatment plan of care. No further questions noted by the patient. Critical care attestation.: If time is entered above; I have spent that time in minutes in the direct care of this critically ill patient, excluding procedure time. ED Disposition Clinical Impression: Arthralgia Qualifiers: Joint pain location: unspecified Qualified Code(s): M25.50 - Pain in unspecified joint Disposition: DC-01 TO HOME OR SELFCARE Is pt being admited?: No Does the pt Need Aspirin: No Condition: Stable Additional Instructions: Follow-up with a primary care doctor in 3-5 days or if symptoms worsen and continue return to emergency room as soon as possible. Prescriptions: Acetaminophen [Acetaminophen 8 Hour] 650 mg PO Q8H PRN #20 tablet.er PRN Reason: Pain , Severe (7-10) Referrals: PRIMARY CAREMD [Primary Care Provider] - 3-5 Days JOSE AVILES MD [Staff Physician] - 3-5 Days
[2020-02-22 05:10] LABS: Basophils # (Auto) 0.1 K/mm3 (0.0-0.1); Basophils % (Auto) 0.7 % (0.0-1.8); Eosinophils # (Auto) 0.1 K/mm3 (0.0-0.4); Eosinophils % (Auto) 1.5 % (0.0-4.3); Hematocrit 33.1 % (35.5-45.6); Hemoglobin 11.2 gm/dl (11.8-15.2); Lymphocytes # (Auto) 3.3 K/mm3 (1.2-5.4); Lymphocytes % (Auto) 37.1 % (13.4-35.0); Mean Corpuscular HGB Conc 34 % (32-34); Mean Corpuscular Volume 93 fl (84-94); Monocytes # (Auto) 0.7 K/mm3 (0.0-0.8); Platelet Count 307 K/mm3 (140-440); Red Blood Count 3.57 M/mm3 (3.65-5.03); Red Cell Distribution Width 15.1 % (13.2-15.2)
== END 2020-02-22 05:32 | disposition home or self-care (01) ==
LOC: ED 01:42
DX: M79.641 Pain in right hand (principal); M79.642 Pain in left hand; M79.671 Pain in right foot; I10 Essential (primary) hypertension; F25.0 Schizoaffective disorder, bipolar type; Z79.899 Other long term (current) drug therapy
CPT/HCPCS: 36415; 80048; 82550; 85025; 99283

== ENCOUNTER 2020-02-25 21:54 | Emergency (ER) | payer MEDICAID ==
[2020-02-26 00:45] LABS: Basophils % (Auto) 0.7 % (0.0-1.8); Eosinophils # (Auto) 0.2 K/mm3 (0.0-0.4); Eosinophils % (Auto) 2.9 % (0.0-4.3); Hematocrit 31.7 % (35.5-45.6); Hemoglobin 10.5 gm/dl (11.8-15.2); Lymphocytes # (Auto) 3.2 K/mm3 (1.2-5.4); Mean Corpuscular HGB Conc 33 % (32-34); Mean Corpuscular Volume 94 fl (84-94); Monocytes # (Auto) 0.7 K/mm3 (0.0-0.8); Monocytes % (Auto) 10.7 % (0.0-7.3); Platelet Count 293 K/mm3 (140-440); Red Blood Count 3.39 M/mm3 (3.65-5.03); Red Cell Distribution Width 15.5 % (13.2-15.2)
[2020-02-26 00:59] LABS: BUN/Creatinine Ratio 18; Blood Urea Nitrogen 23 mg/dL (9-20); Calcium 9.6 mg/dL (8.4-10.2); Hemolysis Index 6
--- NOTE | 2020-02-26 02:52 | Emergency Department Report ---
ED General Adult HPI - General Chief complaint: Neuro Symptoms/Deficit Stated complaint: LF LEG NUMBNESS Time Seen by Provider: 02/26/20 02:30 Source: patient Mode of arrival: Stretcher Limitations: No Limitations - History of Present Illness Initial comments: Mr. Fischer is a 55-year-old male with history of encephalopathy, Finney's disease, anemia, hypertension, CKD who presents with lower back pain left leg numbness after shower door struck his back and left leg. He was concerned for possible pinched nerve. He has mild pain. He was able to ambulate at scene. He recently noticed bilateral hand numbness. No paralysis. No difficulty with speech. He desires referral to neurologist. -: Gradual, This evening Location: left, lower extremity Severity scale (0 -10): 0 Quality: aching Consistency: now resolved Improves with: none Worsens with: none Associated Symptoms: denies other symptoms - Related Data Home Medications Medication Instructions Recorded Confirmed Last Taken Ferrous Gluconate [Ferrous 324 mg PO DAILY 09/23/19 10/15/19 Unknown Gluconate 324 MG] Mupirocin [Bactroban 2% OINT] 1 applic TP DAILY 09/23/19 10/15/19 Unknown tiZANidine [Zanaflex 4mg TAB] 4 mg PO Q12H PRN 09/23/19 10/15/19 Unknown Previous Rx's Medication Instructions Recorded Last Taken Type DULoxetine [Cymbalta] 60 mg PO QDAY #30 capsule 10/09/19 Unknown Rx Famotidine [Pepcid] 20 mg PO DAILY #30 tablet 10/09/19 Unknown Rx busPIRone [Buspar] 20 mg PO BID #60 tab 10/09/19 Unknown Rx carvediloL [Coreg] 25 mg PO Q12HR #60 tablet 10/09/19 Unknown Rx Naproxen 500 mg PO Q12H PRN #30 tablet 02/08/20 Unknown Rx predniSONE [Deltasone] 40 mg PO QDAY #10 tab 02/08/20 Unknown Rx Acetaminophen [Acetaminophen 8 650 mg PO Q8H PRN #20 tablet.er 02/22/20 Unknown Rx Hour] Allergies Allergy/AdvReac Type Severity Reaction Status Date / Time No Known Allergies Allergy Unverified 09/23/19 04:32 ED Review of Systems ROS: Stated complaint: LF LEG NUMBNESS Other details as noted in HPI Comment: All other systems reviewed and negative Constitutional: denies: fever, malaise Respiratory: denies: cough, shortness of breath Cardiovascular: denies: chest pain Gastrointestinal: denies: abdominal pain, nausea, vomiting Neurological: numbness. denies: headache, weakness, paresthesias, confusion, abnormal gait ED Past Medical Hx - Past Medical History Previous Medical History?: Yes Hx Hypertension: Yes Hx Congestive Heart Failure: No Hx Diabetes: No Hx GERD: Yes Hx Liver Disease: Yes (HX ELEVATED LIVER ENZYMES) Hx Renal Disease: Yes (Dialysis Tue, Thur, Sat; Port on left chest) Hx Psychiatric Treatment: Yes (Bipolar Disorder, Schizophrenia) Hx Asthma: No Hx COPD: No Additional medical history: Finney's like disease - Surgical History Past Surgical History?: No - Social History Smoking Status: Never Smoker Substance Use Type: None - Medications Home Medications: Home Medications Medication Instructions Recorded Confirmed Last Taken Type Ferrous Gluconate [Ferrous 324 mg PO DAILY 09/23/19 10/15/19 Unknown History Gluconate 324 MG] Mupirocin [Bactroban 2% OINT] 1 applic TP DAILY 09/23/19 10/15/19 Unknown History tiZANidine [Zanaflex 4mg TAB] 4 mg PO Q12H PRN 09/23/19 10/15/19 Unknown History DULoxetine [Cymbalta] 60 mg PO QDAY #30 capsule 10/09/19 10/15/19 Unknown Rx Famotidine [Pepcid] 20 mg PO DAILY #30 tablet 10/09/19 10/15/19 Unknown Rx busPIRone [Buspar] 20 mg PO BID #60 tab 10/09/19 10/15/19 Unknown Rx carvediloL [Coreg] 25 mg PO Q12HR #60 tablet 10/09/19 10/15/19 Unknown Rx Naproxen 500 mg PO Q12H PRN #30 tablet 02/08/20 Unknown Rx predniSONE [Deltasone] 40 mg PO QDAY #10 tab 02/08/20 Unknown Rx Acetaminophen [Acetaminophen 8 650 mg PO Q8H PRN #20 tablet.er 02/22/20 Unknown Rx Hour] ED Physical Exam - General Limitations: No Limitations General appearance: alert, in no apparent distress - Head Head exam: Present: atraumatic, normocephalic - Eye Eye exam: Present: normal appearance - ENT ENT exam: Present: mucous membranes moist - Neck Neck exam: Present: normal inspection, full ROM - Respiratory Respiratory exam: Present: normal lung sounds bilaterally. Absent: respiratory distress, wheezes, rales, rhonchi - Cardiovascular Cardiovascular Exam: Present: regular rate, normal rhythm, normal heart sounds. Absent: systolic murmur, diastolic murmur, rubs, gallop - GI/Abdominal GI/Abdominal exam: Present: soft, normal bowel sounds. Absent: distended, tenderness, guarding, rebound - Extremities Exam Extremities exam: Present: normal inspection - Back Exam Back exam: Present: normal inspection - Neurological Exam Neurological exam: Present: alert, oriented X3 - Expanded Neurological Exam Expanded Patient oriented to: Present: person, place, time Speech: Present: fluid speech Cranial nerves: EOM's Intact: Normal Cerebellar function: Finger to Nose: Normal Sensory exam: Upper Extremity Light Touch: Normal Motor strength exam: RUE: 5, LUE: 5, RLE: 5, LLE: 5 Best Eye Response (Mini): (4) open spontaneously Best Motor Response (Mini): (6) obeys commands Best Verbal Response ([place]): (5) oriented [place] Total: 15 - Psychiatric Psychiatric exam: Present: normal affect, normal mood - Skin Skin exam: Present: warm, dry, intact, normal color. Absent: rash ED Course Vital Signs 02/25/20 23:55 Temperature 98 F Pulse Rate 81 Respiratory 18 Rate Blood Pressure 118/64 [Left] O2 Sat by Pulse 98 Oximetry ED Medical Decision Making - Lab Data Result diagrams: 02/26/20 00:08 02/26/20 00:08 - Medical Decision Making 1. Left lower back pain left leg numbness: Likely sciatica referred to orthopedic surgeon recommend [id number] ibuprofen Tylenol 2. Bilateral hand numbness differential diagnosis include peripheral neuropathy, no indication of CVA Patient requests neurologist referral. Discharged home in stable condition CBC chemistry obtained according to triage protocol. Labs are unremarkable Critical care attestation.: If time is entered above; I have spent that time in minutes in the direct care of this critically ill patient, excluding procedure time. ED Disposition Clinical Impression: Sciatica, Neuropathy Disposition: - TO HOME OR SELFCARE Is pt being admited?: No Does the pt Need Aspirin: No Condition: Stable Instructions: Peripheral Neuropathy (ED) Referrals: PRIMARY CARE, [Primary Care Provider] - 3-5 Days JOSIE DIOR MD [Staff Physician] - 3-5 Days FABY HORN MD [Staff Physician] - 3-5 Days
[2020-02-26] MEDS ORDERED: IBUPROFEN 800 MG TAB PO ONE (03:08)
[2020-02-26 04:23] VITALS: BP 120/70
== END 2020-02-26 03:30 | disposition home or self-care (01) ==
LOC: ED 21:54
DX: M54.30 Sciatica, unspecified side (principal); G62.9 Polyneuropathy, unspecified; I10 Essential (primary) hypertension; K21.9 Gastro-esophageal reflux disease without esophagitis; F31.9 Bipolar disorder, unspecified; Z79.899 Other long term (current) drug therapy; Z87.448 Personal history of other diseases of urinary system
CPT/HCPCS: 36415; 80048; 85025

== ENCOUNTER 2020-03-02 03:38 | Emergency (ER) | payer MEDICAID ==
[2020-03-02 03:48] VITALS: BP 106/67
[2020-03-02] MEDS ORDERED: oxyCODONE /ACETAMINOPHEN 5-325MG TAB PO ONE (16:44)
[2020-03-02] MEDS ORDERED: oxyCODONE 5 MG TAB PO ONE (16:45)
--- NOTE | 2020-03-02 16:45 | Emergency Department Report ---
ED General Adult HPI - General Chief complaint: Pain General Stated complaint: RIGHT SIDE BODY PAIN PUI?: No Time Seen by Provider: 03/02/20 15:31 Source: patient, EMS ( EMS documentation not available at time of chart di ctation ), RN notes reviewed, old records reviewed Mode of arrival: Ambulatory Limitations: No Limitations - History of Present Illness Initial comments: Patient is a 55-year-old gentleman. He has a history of renal insufficiency, previously on hemodialysis, not currently on hemodialysis, history of COVID-19 earlier on this year, and Christine's He presents to the ER with a complaint of nontraumatic paralumbar back pain, and bilateral lower extremity pain in his knees and bilateral tibia/fibula, present for years. He denies headache, neck pain, chest pain, abdominal pain, shortness of breath, vomiting blood, defecating blood. He has not taken any [id number] medications for this. He does not have a primary care doctor that he is aware of. He reportedly lives in a group residence. -: year(s) Location: back, left, right, upper extremity, lower extremity Quality: aching Consistency: intermittent Improves with: rest Associated Symptoms: denies other symptoms - Related Data Home Medications Medication Instructions Recorded Confirmed Last Taken Ferrous Gluconate [Ferrous 324 mg PO DAILY 09/23/19 10/15/19 Unknown Gluconate 324 MG] Mupirocin [Bactroban 2% OINT] 1 applic TP DAILY 09/23/19 10/15/19 Unknown tiZANidine [Zanaflex 4mg TAB] 4 mg PO Q12H PRN 09/23/19 10/15/19 Unknown Previous Rx's Medication Instructions Recorded Last Taken Type DULoxetine [Cymbalta] 60 mg PO QDAY #30 capsule 10/09/19 Unknown Rx Famotidine [Pepcid] 20 mg PO DAILY #30 tablet 10/09/19 Unknown Rx busPIRone [Buspar] 20 mg PO BID #60 tab 10/09/19 Unknown Rx carvediloL [Coreg] 25 mg PO Q12HR #60 tablet 10/09/19 Unknown Rx Naproxen 500 mg PO Q12H PRN #30 tablet 02/08/20 Unknown Rx predniSONE [Deltasone] 40 mg PO QDAY #10 tab 02/08/20 Unknown Rx Acetaminophen [Acetaminophen 8 650 mg PO Q8H PRN #20 tablet.er 02/22/20 Unknown Rx Hour] Allergies Allergy/AdvReac Type Severity Reaction Status Date / Time No Known Allergies Allergy Unverified 09/23/19 04:32 ED Review of Systems ROS: Stated complaint: RIGHT SIDE BODY PAIN Other details as noted in HPI Constitutional: denies: fever Eyes: denies: eye discharge ENT: denies: epistaxis Respiratory: denies: cough Cardiovascular: denies: chest pain Gastrointestinal: denies: abdominal pain, vomiting, diarrhea, constipation Genitourinary: denies: dysuria Musculoskeletal: back pain, arthralgia, myalgia Neurological: denies: weakness Hematological/Lymphatic: denies: easy bleeding ED Past Medical Hx - Past Medical History Previous Medical History?: Yes Hx Hypertension: Yes Hx Congestive Heart Failure: No Hx Diabetes: No Hx GERD: Yes Hx Liver Disease: Yes (HX ELEVATED LIVER ENZYMES) Hx Renal Disease: Yes (Dialysis Tue, Thur, Sat; Port on left chest) Hx Psychiatric Treatment: Yes (Bipolar Disorder, Schizophrenia) Hx Asthma: No Hx COPD: No Additional medical history: Christine's like disease - Surgical History Past Surgical History?: No - Social History Smoking Status: Never Smoker Substance Use Type: None - Medications Home Medications: Home Medications Medication Instructions Recorded Confirmed Last Taken Type Ferrous Gluconate [Ferrous 324 mg PO DAILY 09/23/19 10/15/19 Unknown History Gluconate 324 MG] Mupirocin [Bactroban 2% OINT] 1 applic TP DAILY 09/23/19 10/15/19 Unknown History tiZANidine [Zanaflex 4mg TAB] 4 mg PO Q12H PRN 09/23/19 10/15/19 Unknown History DULoxetine [Cymbalta] 60 mg PO QDAY #30 capsule 10/09/19 10/15/19 Unknown Rx Famotidine [Pepcid] 20 mg PO DAILY #30 tablet 10/09/19 10/15/19 Unknown Rx busPIRone [Buspar] 20 mg PO BID #60 tab 10/09/19 10/15/19 Unknown Rx carvediloL [Coreg] 25 mg PO Q12HR #60 tablet 10/09/19 10/15/19 Unknown Rx Naproxen 500 mg PO Q12H PRN #30 tablet 02/08/20 Unknown Rx predniSONE [Deltasone] 40 mg PO QDAY #10 tab 02/08/20 Unknown Rx Acetaminophen [Acetaminophen 8 650 mg PO Q8H PRN #20 tablet.er 02/22/20 Unknown Rx Hour] ED Physical Exam - General Limitations: No Limitations General appearance: alert, in no apparent distress - Head Head exam: Present: atraumatic, normocephalic - Eye Eye exam: Present: normal appearance, EOMI. Absent: nystagmus - ENT ENT exam: Present: normal exam, normal orophraynx, mucous membranes moist, normal external ear exam - Neck Neck exam: Present: normal inspection, full ROM. Absent: tenderness, meningismus - Respiratory Respiratory exam: Present: normal lung sounds bilaterally. Absent: respiratory distress - Cardiovascular Cardiovascular Exam: Present: regular rate, normal rhythm, normal heart sounds. Absent: bradycardia, tachycardia, irregular rhythm, systolic murmur, diastolic murmur, rubs, gallop - GI/Abdominal GI/Abdominal exam: Present: soft. Absent: distended, tenderness, guarding, rebound, rigid, pulsatile mass - Rectal Rectal exam: Present: deferred - Extremities Exam Extremities exam: Present: normal inspection, full ROM, other (2+ pulses noted in the bilateral upper and lower extremities. There is no palpable cord. negative Homans sign. Muscular compartments are soft. The pelvis is stable.). Absent: calf tenderness - Back Exam Back exam: Present: normal inspection. Absent: tenderness, CVA tenderness (R), CVA tenderness (L), paraspinal tenderness, vertebral tenderness - Neurological Exam Neurological exam: Present: alert, other (No facial droop. Tongue midline. Extraocular movements intact bilaterally. Facial sensation intact to light touch in V1, V2, V3 distribution bilaterally. 5 and a 5 strength in 4 ex tremities. Sensation intact to light touch in 4 extremities.) - Psychiatric Psychiatric exam: Present: normal affect, normal mood - Skin Skin exam: Present: warm, dry, intact, normal color. Absent: rash ED Course Vital Signs 03/02/20 03/02/20 03:45 19:55 Temperature 98.7 F Pulse Rate 80 Respiratory 16 18 Rate Blood Pressure 106/67 O2 Sat by Pulse 99 Oximetry ED Medical Decision Making - Lab Data Result diagrams: 03/02/20 16:55 03/02/20 16:55 Vital Signs 03/02/20 03:45 Temperature 98.7 F Pulse Rate 80 Respiratory 16 Rate Blood Pressure 106/67 O2 Sat by Pulse 99 Oximetry Lab Results 03/02/20 03/02/20 03/02/20 Range/Units 16:55 16:55 16:55 Hgb 10.9 L (11.8-15.2) gm/dl Hct 32.6 L (35.5-45.6) % Plt Count 302 (140-440) K/mm3 Sodium 140 (137-145) mmol/L Potassium 3.6 (3.6-5.0) mmol/L Chloride 102.6 (98-107) mmol/L Carbon Dioxide 24 (22-30) mmol/L Anion Gap 17 mmol/L BUN 21 H (9-20) mg/dL Creatinine 1.0 (0.8-1.3) mg/dL Estimated GFR > 60 ml/min BUN/Creatinine Ratio 21 % Glucose 94 (75-100) mg/dL Calcium 9.7 (8.4-10.2) mg/dL Magnesium 1.80 (1.7-2.3) mg/dL Total Bilirubin < 0.20 (0.1-1.2) mg/dL AST 21 (5-40) units/L ALT 21 (7-56) units/L Alkaline Phosphatase 62 (35-129) units/L Total Creatine Kinase 169 (55-170) units/L Total Protein 6.6 (6.3-8.2) g/dL Albumin 4.1 (3.9-5) g/dL Albumin/Globulin Ratio 1.6 % Salicylates < 0.3 L (2.8-20.0) mg/dL Acetaminophen (10.0-30.0) ug/mL 03/02/20 Range/Units 16:55 Hgb (11.8-15.2) gm/dl Hct (35.5-45.6) % Plt Count (140-440) K/mm3 Sodium (137-145) mmol/L Potassium (3.6-5.0) mmol/L Chloride (98-107) mmol/L Carbon Dioxide (22-30) mmol/L Anion Gap mmol/L BUN (9-20) mg/dL Creatinine (0.8-1.3) mg/dL Estimated GFR ml/min BUN/Creatinine Ratio % Glucose (75-100) mg/dL Calcium (8.4-10.2) mg/dL Magnesium (1.7-2.3) mg/dL Total Bilirubin (0.1-1.2) mg/dL AST (5-40) units/L ALT (7-56) units/L Alkaline Phosphatase (35-129) units/L Total Creatine Kinase (55-170) units/L Total Protein (6.3-8.2) g/dL Albumin (3.9-5) g/dL Albumin/Globulin Ratio % Salicylates (2.8-20.0) mg/dL Acetaminophen 5.0 L (10.0-30.0) ug/mL - Medical Decision Making Differential diagnosis, including but not limited to: Arthritis, myalgias Assessment and plan: 55-year-old gentleman who complains of musculoskeletal pain for years. He is afebrile with reassuring vital signs. He has full active and passive range of motion of his large joints, without evidence of redness, pus, streaking, cellulitis, fracture, dislocation, or compartment syndrome. He was observed in this department for hours without clinical deterioration. Because of his complex past medical history, I obtained screening laboratory studies to assess hepatic function, renal function, as well as CK levels. His laboratory studies were fairly unremarkable. He does not require hospitalization or admission at this time, he can take Tylenol, and participate in physical therapy, rest, ice, compression, elevation, and follow-up with a primary care doctor for his chronic musculoskeletal pain. Critical care attestation.: If time is entered above; I have spent that time in minutes in the direct care of this critically ill patient, excluding procedure time. ED Disposition Clinical Impression: Arthralgia Qualifiers: Joint pain location: unspecified Qualified Code(s): M25.50 - Pain in unspecified joint Chronic back pain Qualifiers: Back pain location: low back pain Back pain laterality: unspecified Sciatica presence: without sciatica Qualified Code(s): M54.5 - Low back pain Disposition: - TO HOME OR SELFCARE Is pt being admited?: No Does the pt Need Aspirin: No Condition: Stable Instructions: Osteoarthritis (ED) Additional Instructions: Rest, avoid heavy lifting, and avoid strenuous physical activities. Patient may participate with rest as needed, icing joints and muscle groups as needed, compression, and elevation of the affected extremities. He may also take [id number] Tylenol, 650 mg by mouth, every 4-6 hours as needed for pain, maximum daily dose of Tylenol to not exceed 3 g per 24 hours. The patient should follow-up with his primary care doctor or supervisor kennel within the next month, to determine whether or not he is a suitable candidate for [id number] NSAIDs, such as aspirin, Motrin, ibuprofen, Naprosyn, Aleve. Patient may also participate with physical therapy, which may improve musculoskeletal pain. He can follow-up with his primary care doctor for referral to this. Recommend follow-up within the next month. Please return to the emergency room right away with new pain, worsening pain, migration of pain, projectile vomiting, change in mental status, confusion, inability to tolerate liquid feeds, new, worsened or different symptoms not present on the initial emergency room evaluation. Referrals: JOSE AVILES MD [Staff Physician] - as needed Forms: Work/School Release Form(ED) Time of Disposition: 18:06 (discharge to intermediate)
[2020-03-02 17:08] LABS: Hematocrit 32.6 % (35.5-45.6); Hemoglobin 10.9 gm/dl (11.8-15.2)
[2020-03-02 17:31] LABS: Alanine Aminotransferase 21 units/L (7-56); Albumin 4.1 g/dL (3.9-5); BUN/Creatinine Ratio 21; Blood Urea Nitrogen 21 mg/dL (9-20); Calcium 9.7 mg/dL (8.4-10.2); Hemolysis Index 10
[2020-03-02] MEDS ORDERED: ACETAMINOPHEN 325 MG TAB PO ONE (18:01)
[2020-03-02] MEDS ORDERED: ACETAMINOPHEN 325 MG TAB ONE (20:06)
== END 2020-03-02 20:11 | disposition home or self-care (01) ==
LOC: ED 03:38
DX: M54.5 Low back pain (principal); G89.29 Other chronic pain; M25.50 Pain in unspecified joint; I10 Essential (primary) hypertension; K21.9 Gastro-esophageal reflux disease without esophagitis; F20.9 Schizophrenia, unspecified; F31.9 Bipolar disorder, unspecified; Z79.899 Other long term (current) drug therapy
CPT/HCPCS: 36415; 80053; 80320; 82550; 83735; 85014; 85018; 85049; G0480

== ENCOUNTER 2020-05-28 19:48 | Emergency (ER) | payer MEDICAID ==
[2020-05-28 20:04] VITALS: BP 145/85
[2020-05-28] MEDS ORDERED: ACETAMINOPHEN 500 MG TAB PO ONE (21:40)
[2020-05-28] MEDS ORDERED: diphenhydrAMINE 25 MG CAP PO ONE (21:42)
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
== END 2020-05-29 00:10 | disposition home or self-care (01) ==
LOC: ED 19:48
DX: R51.9 Headache, unspecified (principal); M54.2 Cervicalgia; K21.9 Gastro-esophageal reflux disease without esophagitis; M19.90 Unspecified osteoarthritis, unspecified site; F25.0 Schizoaffective disorder, bipolar type; Z79.899 Other long term (current) drug therapy; V49.59XA Passenger injured in collision with other motor vehicles in traffic accident, initial encounter; Y93.89 Activity, other specified; Y92.488 Other paved roadways as the place of occurrence of the external cause; Y99.8 Other external cause status
CPT/HCPCS: 99283